=== PATIENT | male | born 1975 | race Caucasian/White ===

== ENCOUNTER 2017-08-07 10:46 | Emergency (ER) | payer BC ==
[2017-08-07 10:51] VITALS: RESP 18
--- NOTE | 2017-08-07 11:28 | ED ---
Lower Extremity Injury HPI - General Chief Complaint: Extremity Injury, Lower Stated Complaint: left leg/ankle injury Time Seen by Provider: 08/07/17 11:00 Source: patient, RN notes reviewed Mode of arrival: ambulatory Limitations: no limitations - History of Present Illness Initial Comments: This is a 42-year-old male who has a benign past medical history who states he was jumping on a trampoline yesterday with his children when he rolled his left ankle. He complains of pain and swelling to left ankle some mild foot pain he is using crutches now he states he has a lot of pain no pain above this area however no head neck or back pain or other injuries reported. He does state that he heard a pop when he rolled it. The patient did have pain medication prior to coming in the emergency department and does not request any at this time. MD Complaint: ankle injury - Related Data Previous Rx's Medication Instructions Recorded Ibuprofen 800 mg PO Q6HR PRN #20 tablet 08/07/17 Allergies Allergy/AdvReac Type Severity Reaction Status Date / Time No Known Allergies Allergy Verified 08/07/17 11:05 Review of Systems ROS Statement: Those systems with pertinent positive or pertinent negative responses have been documented in the HPI. ROS Other: All systems not noted in ROS Statement are negative. Past Medical History Past Medical History: No Reported History History of Any Multi-Drug Resistant Organisms: MRSA Date of last positivie culture/infection: 2010 MDRO Source:: neck Additional Past Surgical History / Comment(s): left lung surgery Past Psychological History: No Psychological Hx Reported Smoking Status: Current every day smoker Past Alcohol Use History: Occasional Past Drug Use History: None Reported General Exam - General Exam Comments Initial Comments: This is a well-developed well-nourished awake alert oriented times 3 male Limitations: no limitations General appearance: alert, in no apparent distress Head exam: Present: atraumatic, normocephalic, normal inspection Eye exam: Present: normal appearance Neck exam: Present: normal inspection Extremities exam: Present: tenderness, normal capillary refill, pedal edema, joint swelling, other (Examination left lower extremity demonstrates edema to the left ankle the medial anterior and lateral aspect of it with ecchymosis noted no definite step-off or crepitation no obvious deformity however. There is mild tenderness palpation of the proximal fifth metatarsal. Again no step- off or crepitation Refill less than 2 seconds sensorimotor or vascular deficits no tenderness palpation proximal to this area.). Absent: full ROM Back exam: Present: full ROM Neurological exam: Present: alert, oriented X3, CN II-XII intact Psychiatric exam: Present: normal affect, normal mood Skin exam: Present: warm, dry, intact, other (Ecchymosis noted in this stated above) Course Vital Signs 08/07/17 10:47 Temperature 97.2 F L Pulse Rate 100 Respiratory 18 Rate Blood Pressure 168/104 O2 Sat by Pulse 100 Oximetry Medical Decision Making - Medical Decision Making I did discuss findings with the patient he will be discharged he does have crutches already be placed in a ankle stirrup Motrin for pain ice elevation and follow-up with his doctor. - Radiology Data Radiology results: report reviewed (I did review the imaging and report no evidence of fracture. There is evidence of soft tissue swelling.), image reviewed Disposition Clinical Impression: Left ankle sprain Disposition: HOME SELF-CARE Condition: Good Instructions: Ankle Sprain (ED) Prescriptions: Ibuprofen 800 mg PO Q6HR PRN #20 tablet PRN Reason: Pain Is patient prescribed a controlled substance at d/c from ED?: No Referrals: None,Stated [Primary Care Provider] - 1-2 days
--- NOTE | 2017-08-07 11:50 | XR ---
Left ankle and left foot HISTORY: Bruising and swelling, trauma and pain 3 views of the left foot and 3 views of left ankle. No comparisons Bone mineralization, joint spaces and alignment are maintained. There is a small plantar calcaneal sp ur suspected. Soft tissue swelling is present about the ankle. Small ossific densities distal to the medial malleolus are well-corticated and not felt likely to be acute. IMPRESSION: Soft tissue swelling. No acute dislocation, additional findings above, follow-up as indic ated.
[2017-08-07 12:19] VITALS: BP 159/99; PULSE 82; TEMP 97
== END 2017-08-07 12:19 | disposition home or self-care (01) ==
LOC: EC 10:46
DX: S93.402A Sprain of unspecified ligament of left ankle, initial encounter (principal); F17.200 Nicotine dependence, unspecified, uncomplicated; Z86.14 Personal history of Methicillin resistant Staphylococcus aureus infection; X50.1XXA Overexertion from prolonged static or awkward postures, initial encounter; Y93.44 Activity, trampolining; Y92.89 Other specified places as the place of occurrence of the external cause
CPT/HCPCS: 29515; 99283